=== PATIENT | male | born 1945 | race Caucasian/White ===

== ENCOUNTER 2016-08-23 02:29 | Observation (INO) | payer MEDICARE, OTHER ==
[2016-08-22 13:20] LABS: ASCORBIC ACID (UR NOT ORDER) NEG (NEG); BILIRUBIN, URINE NEGATIVE (NEG); KETONE, URINE TRACE MG/DL (NEG)
--- NOTE | ~2016-08-23 | CN ---
Consultation Report [facility] [address]. [address] NAME: SALVADOR BURNHAM : 45 STATUS : ADM IN [facility]#: [id number] AGE: 70 ADM/REG DATE : 08/23/16 MR#: [id number] REPORT SERV DATE: 08/24/16 DICTATED BY: FADY KEANE DATE: 08/23/16 REPORT STATUS : Draft TRANSCRIBED BY: MODL DATE: 08/23/16 GI CONSULTATION DATE OF CONSULTATION: 08/23/2016 REASON FOR CONSULTATION: Evaluation and management of the patient's malfunctioning PTC tube. HISTORY OF PRESENT ILLNESS: The patient is a pleasant 70-year-old male patient, who is known to Dr. Alfred, who has a pertinent medical history for pancreatic cancer diagnosed in 2012, who is status post Whipple. He did complete chemotherapy and radiation. He has a history of recurrence of disease in April of this year. An attempt at ERCP with drain placement by Dr. Alfred in April was unsuccessful. Therefore, he went to Interventional Radiology for placement of a PTC tube. Last admission here was in May, and he had the drain replaced. He states that he was doing well up until last evening. He states he had emptied his PTC tube and states that it was about alf full, which is typical for him. He states that he started to have right lower quadrant abdominal discomfort, noticed that he had no drainage in his PTC tube and that he had drainage actually coming out around the tube from underneath his skin. His pain increased to he was unable to bear it, he came into the hospital, had elevated white count at 14.1, normal LFTs on admission. Since his admission, he has been placed on Zosyn. His tube has continued not to drain, but draining out around his skin. I have talked with Dr. Nair regarding this. We will send him to Interventional Radiology for either flushing or replacement of the tube as this appears to be the issue. PAST MEDICAL HISTORY: Positive for pancreatic cancer, status post Whipple, chemotherapy, and radiation; diabetes type 2; stroke; coronary artery disease, status post CABG; chronic kidney disease stage 3; hypertension; elevated cholesterol; nephrolithiasis; pulmonary nodules; Enterobacter bacteremia in 05/2016. PAST SURGICAL HISTORY: Whipple, CABG, right carotid endarterectomy. SOCIAL HISTORY: Positive for tobacco. Positive for alcohol. Negative for illicits. . Lives alone. FAMILY HISTORY: Noncontributory from a GI standpoint. ALLERGIES: HE HAS NO KNOWN DRUG ALLERGIES. HOME MEDICATIONS: Aspirin, Lipitor, Unisom, folic acid, Novolin, Prinzide. REVIEW OF SYSTEMS: A 10-point review of systems has been obtained with pertinent positives being addressed in the history of present illness. PERTINENT LABORATORY DATA: Sodium is 131, potassium 4.6, BUN is 30, creatinine 1.71. White Consultation Report [facility] [address]. [address] NAME: SALVADOR BURNHAM : 45 STATUS : ADM IN PAT#: [id number] AGE: 70 ADM/REG DATE : 08/23/16 MR#: [id number] REPORT SERV DATE: 08/24/16 DICTATED BY: FADY KEANE DATE: 08/23/16 REPORT STATUS : Draft TRANSCRIBED BY: OLIVIER DATE: 08/23/16 count 14.1, hemoglobin 10.8, hematocrit 31.5. CT of abdomen and pelvis shows status post Whipple and placement of internal-external percutaneous drain, stable with no obstruction. Total bilirubin 1.4, alkaline phosphatase is 249, ALT 35, AST 42, lipase 26. PHYSICAL EXAMINATION: VITAL SIGNS: Temperature 98.6, pulse 108, respirations 18, blood pressure 191/86. NEURO: Reveals an alert, frail-appearing male, sitting up in the bed. GENERAL: He is somewhat cooperative. He is upset secondary to he states "I have been sitting here all day." No obvious distress. Oriented x3. NECK: No JVD. No palpable nodes. Supple. HEAD, EARS, EYES, NOSE, AND THROAT: There is a very slight icterus noted to the sclerae. Pupils are equal, round, and reactive to light and accommodation. Normocephalic and atraumatic. LUNGS: Diminished in the bases. Clear in upper lobes. CARDIOVASCULAR SYSTEM: Regular rate and rhythm. ABDOMEN: Soft. Really nontender on exam. The PTC tube is covered with a dressing, which is saturated with green bilious-type material. Actual tubing bag has nothing in it. EXTREMITIES: No edema. Normal distal pulses. SKIN: Warm, dry, and intact. ASSESSMENT: 1. Malfunctioning PTC tube. 2. Pancreatic cancer with a history of Whipple. 3. Diabetes type 2. 4. Leukocytosis. 5. History of Enterobactor bacteremia in 05/2016. 6. Chronic kidney disease stage 3. PLAN: 1. Send the patient to Interventional Radiology to evaluate PTC tube, question replace, question flush. 2. Continue his Zosyn. 3. Follow up his cultures. 4. Continue monitoring his LFTs. We will follow along. CATARINO/OLIVIER SHELBIE Mayorga / [id number] Consultation Report [address] [place]. [address] NAME: SALVADOR BURNHAM : 45 STATUS : ADM IN PAT#: [id number] AGE: 70 ADM/REG DATE : 08/23/16 MR#: [id number] REPORT SERV DATE: 08/24/16 DICTATED BY: FADY KEANE DATE: 08/23/16 REPORT STATUS : Draft TRANSCRIBED BY: OLIVIER DATE: 08/23/16 CC: Fercho Olson M.D.
--- NOTE | ~2016-08-23 | DS ---
Discharge Summary [facility] [address] [place]. [address] NAME: SALVADOR BURNHAM : 45 STATUS : DIS Radha PAT#: [id number] AGE: 70 ADM/REG DATE : 08/23/16 MR#: [id number] REPORT SERV DATE: 08/25/16 DICTATED BY: TERESA HUTCHINS DATE: 08/24/16 REPORT STATUS : Draft TRANSCRIBED BY: MODL DATE: 08/24/16 ADMISSION DATE: 08/23/2016 DISCHARGE DATE: 08/24/2016 CHIEF COMPLAINT: Abdominal pain. DISCHARGE DIAGNOSES: 1. Malfunctioning percutaneous, biliary drain tube. 2. Pancreatic cancer with history of Whipple on recurrence. 3. Diabetes type 2 with a hemoglobin A1c of 11.1. 4. Possible mild cholangitis after the blockage of tube. 5. Chronic kidney disease stage III. HISTORY OF PRESENT ILLNESS: Please see full H and P by Dr. Mahesh Hope for details regarding initial presentation. HOSPITAL COURSE: 1. Pancreatic cancer with history of Whipple status post biliary percutaneous drain with malfunction and leakage around the tube. The patient was seen by Interventional Radiology yesterday and had the tube exchanged, biliary drain is now working and the patient's pain has resolved. We were concerned given his initial presentation with a mild leukocytosis and tachycardia although he was notably in pain that he may have cholangitis. Given the blockage, he was started on Zosyn. GI is following as well as Oncology. At this point, he is no longer tachycardic with heart rates in the 50s. His white blood cell count has normalized. He has not been febrile and cultures have been negative. We will discharge him on a course of Levaquin renally dosed to cover for any possible infection with blockage of the tube. He can follow up outpatient with his oncologist as well with the surgeon to consider possible repeat Whipple. 2. CKD stage III. He is grossly stable. 3. Uncontrolled diabetes with A1c of 11.1. He is to follow up with outpatient providers to continue to work on proper glucose management. He was n.p.o. here for most of his day currently tolerating regular diet. However, we are unable to titrate medications given his n.p.o. status for most of his stay. 4. Time spent on discharge is greater than 30 minutes. HOME MEDICATIONS: Levaquin 750 mg every 48 hours for four doses, aspirin 162 mg daily, Lipitor 20 mg daily, lisinopril/hydrochlorothiazide 20/12.5 p.o. one tab daily. Folic acid 1 mg daily, insulin 70/30 6 units twice a day, Unisom p.r.n. and time spent on discharge greater than 30 minutes. FOLLOWUP: Oncology. BIBIANA/OLIVIER Discharge Summary [address] [place] [address] NAME: SALVADOR BURNHAM : 45 STATUS : DIS Radha PAT#: [id number] AGE: 70 ADM/REG DATE : 08/23/16 MR#: [id number] REPORT SERV DATE: 08/25/16 DICTATED BY: TERESA HUTCHINS DATE: 08/24/16 REPORT STATUS : Draft TRANSCRIBED BY: OLIVIER DATE: 08/24/16 Teresa Hutchins MD / [id number] CC: Fercho Olson M.D.
--- NOTE | ~2016-08-23 | HP ---
History And Physical [address] [place]. [address] NAME: SALVADOR BURNHAM : 45 STATUS : ADM IN [facility]#: [id number] AGE: 70 ADM/REG DATE : 08/23/16 MR#: [id number] REPORT SERV DATE: 08/23/16 DICTATED BY: MAXIMUS NICHOLSON DATE: 08/23/16 REPORT STATUS : Draft TRANSCRIBED BY: MODL DATE: 08/23/16 DATE OF ADMISSION: 08/23/2016 CHIEF COMPLAINT: A 70-year-old male presenting with increasing abdominal pain. HISTORY OF PRESENT ILLNESS: The patient's history was obtained through careful interview of the patient and one of his in-law relatives coupled with review of [facility] medical records. For about three or four weeks, the patient has had increasing right upper quadrant pain. It seems to be related to a pigtail catheter biliary drain that he had placed around the site of previous Whipple for pancreatic cancer. Tonight, the pain became unbearable, but he describes it as 7/10, an aching constant pain associated with nausea, but no vomiting. The patient also developed fevers and chills. He has had chronic dyspnea on exertion, especially in the mornings. No cough, no chest pain. He "feels" dehydrated. He claims his diabetes is under good control. He states he had a negative cardiac stress test within the last month. He is also being considered for a repeat Whipple, monitored by Dr. Alfred and Dr. Fallon for possible recurrence of pancreatic cancer. REVIEW OF SYSTEMS: Otherwise, complete review of systems was obtained and was negative. PAST MEDICAL HISTORY: 1. Pancreatic cancer in 2012, status post Whipple, chemotherapy and radiation therapy under the care Dr. Fallon and followed by Dr. Alfred. 2. Diabetes. 3. Stroke in 2001. 4. Coronary artery disease, status post CABG, followed by Dr. Danielle. 5. Chronic kidney disease, stage III. Baseline creatinine of 1.4 to 1.8. 6. Hypertension. 7. Elevated cholesterol. 8. Nephrolithiasis. 9. Pulmonary nodules. 10.Enterobacter bacteremia in May 2016, likely related to cholangitis with biliary drain placement. PAST SURGICAL HISTORY: 1. Whipple in 2012. 2. CABG in 2005. 3. Right carotid endarterectomy. ALLERGIES: NO KNOWN DRUG ALLERGIES. History And Physical [address] [facility] [place]. [address] NAME: SALVADOR BURNHAM : 45 STATUS : ADM IN [facility]#: [id number] AGE: 70 ADM/REG DATE : 08/23/16 MR#: [id number] REPORT SERV DATE: 08/23/16 DICTATED BY: MAXIMUS NICHOLSON DATE: 08/23/16 REPORT STATUS : Draft TRANSCRIBED BY: OLIVIER DATE: 08/23/16 SOCIAL HISTORY: The patient smokes, drinks two to three alcohol a day at his extreme. He is , has no children, lives alone. Ambulates with a cane. He is a retired second class welder. Lives in [place], [place]. FAMILY HISTORY: Brother of lung cancer. Mother when she was only 43 years old and the patient was only 1-year-old from "foot cancer" (?). Has no surviving siblings now. CURRENT MEDICATIONS: Unknown at this time, but it has been requested by pharmacy. PHYSICAL EXAMINATION: VITAL SIGNS: Temperature 98.6 degrees, pulse 108, blood pressure 191/86, respiratory rate 17, O2 saturation 94% on room air. GENERAL: A pleasant, cooperative male, but in evidence of described distress secondary to nausea and abdominal pain. HEENT: Pupils are equal, round, and reactive to light. No conjunctival pallor. No scleral icterus. Nares are patent. Oropharynx is clear of obstruction. Dry mucous membranes. NECK: Trachea midline. No thyromegaly. LYMPH: No cervical lymphadenopathy. No supraclavicular lymphadenopathy. No inguinal lymphadenopathy. RESPIRATORY: Clear to auscultation at bases. No wheezes, rales, or rhonchi. Normal respiratory effort. CARDIOVASCULAR: Tachycardic. Regular rhythm. No murmurs, rubs, or gallops. No extremity edema is appreciated. ABDOMEN: Significant right upper quadrant pain around the area of his pigtail catheter drain. No guarding or rebound though. Nondistended. No hepatosplenomegaly can be appreciated. DERMATOLOGIC: Warm and dry extremities. No pallor, no cyanosis. PSYCHIATRIC: Normal affect. Good mood. Alert and oriented x3. LABORATORY DATA: White blood count 14.1, hemoglobin 11, hematocrit 31, and platelets 216. Sodium 131, potassium 4.6, chloride 96, bicarb 25, BUN 30, creatinine 1.71, and glucose 354. Urinalysis negative for infection, shows 9 hyaline casts. Albumin 2.8. AST 34, ALT 31, alkaline phosphatase 266, total bilirubin 0.8. STUDIES: A CT scan of the abdomen shows intrahepatic biliary air. ASSESSMENT AND PLAN: 1. Sepsis with suspected cholangitis, white blood count of 14.1 with tachycardia. Check blood cultures. Place on IV Zosyn. History of enterococcus bacteremia in May 2016, consult Dr. Alfred regarding biliary drain and history of Whipple. 2. Pancreatic cancer with a history of Whipple, chemotherapy and radiation. Being evaluated for possible repeat Whipple (?). Consult Dr. Fallon. 3. Chronic kidney disease, stage III, but appears dehydrated. Place on IV fluids. 4. Uncontrolled diabetes. Check hemoglobin A1c. Place on sliding scale insulin. History And Physical [address] [address] NAME: SALVADOR BURNHAM : 45 STATUS : ADM IN [facility]#: [id number] AGE: 70 ADM/REG DATE : 08/23/16 MR#: [id number] REPORT SERV DATE: 08/23/16 DICTATED BY: MAXIMUS NICHOLSON DATE: 08/23/16 REPORT STATUS : Draft TRANSCRIBED BY: OLIVIER DATE: 08/23/16 L/OLIVIER Maximus Nicholson M.D. / [id number] CC: Fercho Olson M.D. Benjamin R Nadeau, MD Michael Dant, M.D.
[~2016-08-23 02:29] MED LIST: ASAB PO; COMP5B PO; FOLIC PO; GLUCOPHAGE1000 MG PO; HUMALOG SC; HUMULIN PEN SC; INSNOV7030 SC; LANTUS SC; LEVAQUIN750 MG PO; LIPITOR20 PO; LIPITOR40 PO; LISINOPRIL40 MG PO; MIRALAXPKT PO; MOMUD PO; MOVANTIK12.5 MG PO; NORCO1 TA1 PO; NOVOLOG SC; PRIN20 PO; PRINZIDE1 TA1 PO; PROTONIX PO; ZOCOR40 PO; ZOFRAN4 PO
[2016-08-23 03:29] LABS: BASOPHILS 0.1 %; BASOPHILS ABSOLUTE 0.02 10/3/uL (0.0-0.16); EOSINOPHILS 0.3 %; EOSINOPHILS ABSOLUTE 0.04 10/3/uL (0.0-0.53); ER CBC TAT 0 Hrs 13 Mins; HEMATOCRIT 31.5 % (40.0-51.0); HEMOGLOBIN 10.8 g/dL (13.6-17.8); IMMATURE GRANULOCYTES 0.2 %; IMMATURE GRANULOCYTES ABSOLUTE 0.03 10/3/uL (0.0-0.11); LYMPHOCYTES 3.6 %; LYMPHOCYTES ABSOLUTE 0.51 10/3/uL (0.67-4.30); MANUAL DIFF NO %; MEAN CORPUS HGB CONC 34.3 g/dL (32.0-36.0); MEAN CORPUSCULAR HEMOGLOB 30.5 pg (26.0-34.0); MEAN PLATELET VOLUME 10.3 fL (9.2-13.0); MONOCYTES 7.3 %; MONOCYTES ABSOLUTE 1.03 10/3/uL (0.21-1.20); NEUTROPHILS 88.5 %; NEUTROPHILS ABSOLUTE 12.49 10/3/uL (2.02-8.40); PLATELET COUNT 216 10/3/uL (150-400); RBC DISTRIBUTION WIDTH 13.7 % (12.0-16.0); RED CELL COUNT 3.54 10/6/uL (4.7-6.1); WHITE BLOOD CELLS 14.1 10/3/uL (4.5-10.5)
[2016-08-23 03:43] LABS: A/G RATIO 0.7 (0.7-1.9); ALBUMIN 2.8 G/DL (3.5-5.0); CALCIUM, SERUM 8.1 MG/DL (8.5-10.4); CHLORIDE, SERUM 96 MMOL/L (96-112); CO2 (CARBON DIOXIDE) 25 MMOL/L (24-34); CREATININE 1.71 MG/DL (0.70-1.30); GFR AFRICAN AMERICAN 46 ML/MIN (>=60); GFR NON AFRICAN AMERICAN 40 ML/MIN (>=60); GLOBULIN 3.9 G/DL (2.5-4.1); POTASSIUM, SERUM 4.6 MMOL/L (3.5-5.3); SGOT(AST) 34 U/L (5-40); SGPT(ALT) 31 U/L (5-65); SODIUM, SERUM 131 MMOL/L (135-148); TOTAL BILIRUBIN 0.8 MG/DL (0-1.2); TOTAL PROTEIN 6.7 G/DL (6.0-8.5)
[2016-08-23 03:47] LABS: ALKALINE PHOSPHATASE 266 U/L (45-117); BUN (BLOOD UREA NITROGEN) 30 MG/DL (6-23); GLUCOSE, SERUM 354 MG/DL (60-99)
[2016-08-23 09:25] LABS: BASOPHILS 0.2 %; BASOPHILS ABSOLUTE 0.02 10/3/uL (0.0-0.16); IMMATURE GRANULOCYTES 0.2 %; IMMATURE GRANULOCYTES ABSOLUTE 0.02 10/3/uL (0.0-0.11); LYMPHOCYTES 9.5 %; LYMPHOCYTES ABSOLUTE 0.98 10/3/uL (0.67-4.30); MEAN CORPUS HGB CONC 34.4 g/dL (32.0-36.0); MEAN CORPUSCULAR HEMOGLOB 30.4 pg (26.0-34.0); MEAN CORPUSCULAR VOLUME 88.4 fL (80-100); MEAN PLATELET VOLUME 10.5 fL (9.2-13.0); MONOCYTES 6.8 %; MONOCYTES ABSOLUTE 0.71 10/3/uL (0.21-1.20); NEUTROPHILS 82.3 %; NEUTROPHILS ABSOLUTE 8.54 10/3/uL (2.02-8.40); PLATELET COUNT 231 10/3/uL (150-400); RBC DISTRIBUTION WIDTH 13.9 % (12.0-16.0); RED CELL COUNT 3.62 10/6/uL (4.7-6.1); WHITE BLOOD CELLS 10.4 10/3/uL (4.5-10.5)
[2016-08-23 09:26] LABS: MANUAL DIFF NO %
[2016-08-23 09:31] LABS: PARTIAL THROMBO TIME 29.3 SEC (22.5-37.2)
[2016-08-23 09:32] LABS: PROTIME (NOT ORD) 13.3 SEC (12.0-14.5)
[2016-08-23 09:45] LABS: A/G RATIO 0.8 (0.7-1.9); BUN (BLOOD UREA NITROGEN) 28 MG/DL (6-23); CALCIUM, SERUM 8.5 MG/DL (8.5-10.4); CHLORIDE, SERUM 100 MMOL/L (96-112); CO2 (CARBON DIOXIDE) 23 MMOL/L (24-34); CREATININE 1.57 MG/DL (0.70-1.30); GFR AFRICAN AMERICAN 51 ML/MIN (>=60); GFR NON AFRICAN AMERICAN 44 ML/MIN (>=60); GLOBULIN 3.8 G/DL (2.5-4.1); POTASSIUM, SERUM 4.6 MMOL/L (3.5-5.3); SGOT(AST) 42 U/L (5-40); SGPT(ALT) 35 U/L (5-65); SODIUM, SERUM 133 MMOL/L (135-148); TOTAL PROTEIN 6.8 G/DL (6.0-8.5)
[2016-08-23 09:46] LABS: ALKALINE PHOSPHATASE 249 U/L (45-117); GLUCOSE, SERUM 116 MG/DL (60-99); TOTAL BILIRUBIN 1.4 MG/DL (0-1.2)
[2016-08-23] MEDS ORDERED: ASAB PO (13:10)
[2016-08-23] MEDS ORDERED: PRINZIDE1 TA1 PO (13:11)
[2016-08-23] MEDS ORDERED: INSNOV7030 SC (13:11)
[2016-08-23] MEDS ORDERED: LIPITOR20 PO (13:11)
[2016-08-23] MEDS ORDERED: FOLIC PO (13:11)
[2016-08-23] MEDS ORDERED: UNISOM25 MG PO (13:11)
[2016-08-24 05:27] LABS: CALCIUM, SERUM 8.1 MG/DL (8.5-10.4); CHLORIDE, SERUM 104 MMOL/L (96-112); CO2 (CARBON DIOXIDE) 24 MMOL/L (24-34); CREATININE 1.39 MG/DL (0.70-1.30); GFR AFRICAN AMERICAN 59 ML/MIN (>=60); GFR NON AFRICAN AMERICAN 51 ML/MIN (>=60); POTASSIUM, SERUM 4.1 MMOL/L (3.5-5.3); SGOT(AST) 27 U/L (5-40); SGPT(ALT) 29 U/L (5-65); SODIUM, SERUM 137 MMOL/L (135-148); TOTAL PROTEIN 5.5 G/DL (6.0-8.5)
[2016-08-24 05:35] LABS: A/G RATIO 0.7 (0.7-1.9); ALBUMIN 2.2 G/DL (3.5-5.0); ALKALINE PHOSPHATASE 160 U/L (45-117); BUN (BLOOD UREA NITROGEN) 23 MG/DL (6-23); DIRECT BILIRUBIN 0.3 MG/DL (0.0-0.4); GLOBULIN 3.3 G/DL (2.5-4.1); GLUCOSE, SERUM 158 MG/DL (60-99); INDIRECT BILIRUBIN(NOT ORDER) 0.7 MG/DL (0.1-0.9)
[2016-08-24 05:40] LABS: BASOPHILS 0.1 %; BASOPHILS ABSOLUTE 0.01 10/3/uL (0.0-0.16); EOSINOPHILS 2.4 %; EOSINOPHILS ABSOLUTE 0.19 10/3/uL (0.0-0.53); HEMATOCRIT 30.5 % (40.0-51.0); HEMOGLOBIN 10.4 g/dL (13.6-17.8); IMMATURE GRANULOCYTES 0.2 %; IMMATURE GRANULOCYTES ABSOLUTE 0.02 10/3/uL (0.0-0.11); LYMPHOCYTES 11.9 %; LYMPHOCYTES ABSOLUTE 0.96 10/3/uL (0.67-4.30); MEAN CORPUS HGB CONC 34.1 g/dL (32.0-36.0); MEAN CORPUSCULAR HEMOGLOB 30.5 pg (26.0-34.0); MEAN CORPUSCULAR VOLUME 89.4 fL (80-100); MEAN PLATELET VOLUME 10.3 fL (9.2-13.0); MONOCYTES 6.8 %; MONOCYTES ABSOLUTE 0.55 10/3/uL (0.21-1.20); NEUTROPHILS 78.6 %; NEUTROPHILS ABSOLUTE 6.35 10/3/uL (2.02-8.40); PLATELET COUNT 197 10/3/uL (150-400); RBC DISTRIBUTION WIDTH 13.9 % (12.0-16.0); RED CELL COUNT 3.41 10/6/uL (4.7-6.1); WHITE BLOOD CELLS 8.1 10/3/uL (4.5-10.5)
[2016-08-24 05:45] LABS: MANUAL DIFF NO %
[2016-08-24] MEDS ORDERED: LEVAQUIN750 MG PO (13:57)
[2016-09-06] MEDS ORDERED: FOLIC PO (22:05)
[2016-09-06] MEDS ORDERED: LIPITOR20 PO (22:05)
[2016-09-06] MEDS ORDERED: PRINZIDE1 TA1 PO (22:05)
[2016-09-06] MEDS ORDERED: INSNOV7030 SC (22:06)
[2016-09-06] MEDS ORDERED: ASAB PO (22:06)
[2016-09-06] MEDS ORDERED: UNISOM25 MG PO (22:09)
[2016-09-10] MEDS ORDERED: NORV5 PO (13:52)
[2016-09-10] MEDS ORDERED: OXYCOD PO (13:53)
== END 2016-08-24 15:52 | disposition home or self-care (01) ==
LOC: ER 02:29 → 2SO 04:41 → 4EA 18:09
PROVIDERS: Hospitalist; Internal Medicine; Internal Medicine Hematology & Oncology; Specialist
PROC: 0F2BX0Z Change Drainage Device in Hepatobiliary Duct, External Approach (ICD-10-PCS; principal; 2016-08-23)
DX: T85.618A Breakdown (mechanical) of other specified internal prosthetic devices, implants and grafts, initial encounter (principal); N20.0 Calculus of kidney; E11.22 Type 2 diabetes mellitus with diabetic chronic kidney disease; I12.9 Hypertensive chronic kidney disease with stage 1 through stage 4 chronic kidney disease, or unspecified chronic kidney disease; N18.3 Chronic kidney disease, stage 3 (moderate); I25.10 Atherosclerotic heart disease of native coronary artery without angina pectoris; F17.200 Nicotine dependence, unspecified, uncomplicated; A41.9 Sepsis, unspecified organism; Z95.1 Presence of aortocoronary bypass graft; Z98.890 Other specified postprocedural states; Z80.8 Family history of malignant neoplasm of other organs or systems; Z85.07 Personal history of malignant neoplasm of pancreas; Z92.21 Personal history of antineoplastic chemotherapy; Z86.73 Personal history of transient ischemic attack (TIA), and cerebral infarction without residual deficits; Z79.82 Long term (current) use of aspirin; Z79.4 Long term (current) use of insulin
CPT/HCPCS: 47536; 74176; 80053; 81001; 82248; 82272; 82962; 83036; 83690; 83735; 84443; 85025; 85610; 85730; 87040; 87493; 87493-59; 96365; 96372; 96375; 96376; 99285; A9270-GY; C1729; C1769; G0378; J1170; J2250; J2405; J2543; J3010; Q9967